=== PATIENT | male | born 1970 | race Caucasian/White ===

== ENCOUNTER 2018-04-20 20:53 | Emergency (ER) | payer OTHER, BC ==
[2018-04-20] MEDS: LORAZEPAM 2 MG INJ IV (21:16)
[2018-04-20] MEDS: SOD CHLORIDE 0.9% 1,000 ML IV (21:18)
[2018-04-20] MEDS: LEVETIRACETAM 1000 MG (PMX) 100 ML IVPB (21:20)
== END 2018-04-21 00:21 | disposition home or self-care (01) ==
LOC: E/R 04-21 00:21
DX: G40.909 Epilepsy, unspecified, not intractable, without status epilepticus (principal); R40.2252 Coma scale, best verbal response, oriented, at arrival to emergency department; F17.210 Nicotine dependence, cigarettes, uncomplicated; R40.2142 Coma scale, eyes open, spontaneous, at arrival to emergency department; R40.2362 Coma scale, best motor response, obeys commands, at arrival to emergency department
CPT/HCPCS: 82962; 96374; 96375; 99284-25

== ENCOUNTER 2018-04-21 13:53 | Emergency (ER) | payer OTHER ==
[2018-04-21 14:40] LABS: ADD MAN DIFF? NO
[2018-04-21 14:43] LABS: BASOPHIL # 0.1 10^3/ul (0.0-0.1); BASOPHILS % 1.1 % (0.0-2.0); EOSINOPHILS # 0.1 10^3/ul (0.0-0.5); EOSINOPHILS % 1.7 % (0.0-7.0); HEMATOCRIT 28.9 % (42.0-52.0); HEMOGLOBIN 9.6 g/dl (14.0-18.0); LYMPHOCYTES # 1.5 10^3/ul (0.8-2.9); LYMPHOCYTES % 23.5 % (15.0-51.0); MEAN CORPUSCULAR HEMOGLOBIN 32.8 pg (29.0-33.0); MEAN CORPUSCULAR HGB CONC 33.2 g/dl (32.0-37.0); MEAN CORPUSCULAR VOLUME 98.6 fl (82.0-101.0); MEAN PLATELET VOLUME 8.7 fl (7.4-10.4); MONOCYTE # 0.5 10^3/ul (0.3-0.9); MONOCYTES % 8.2 % (0.0-11.0); NEUTROPHIL # 4.1 10^3/ul (1.6-7.5); PLATELET COUNT 242 10^3/UL (140-415); RED BLOOD COUNT 2.93 10^6/ul (4.70-6.10); RED CELL DISTRIBUTION WIDTH 12.9 % (11.5-14.5)
[2018-04-21 14:43] LABS: WHITE BLOOD COUNT 6.3 10^3/ul (4.8-10.8)
[2018-04-21] MEDS: LORAZEPAM 2 MG INJ IV (14:56)
[2018-04-21] MEDS: SOD CHLORIDE 0.9% 1,000 ML IV (14:56)
[2018-04-21 15:04] LABS: ANION GAP 15 (8-16); BLOOD UREA NITROGEN 12 mg/dl (7-20); CALCIUM 8.2 mg/dl (8.4-10.2); CARBON DIOXIDE 25 mmol/L (21-31); CHLORIDE 109 mmol/L (97-110); CREATININE 0.53 mg/dl (0.61-1.24); GLUCOSE 97 mg/dl (70-220); POTASSIUM 3.5 mmol/L (3.5-5.1); SODIUM 145 mmol/L (135-144)
[2018-04-21] MEDS: LEVETIRACETAM 500 MG TAB PO (16:53)
[2018-04-21] MEDS: TOPIRAMATE 25 MG TAB PO (16:53)
== END 2018-04-22 01:20 | disposition home or self-care (01) ==
LOC: E/R 04-22 01:20
DX: G40.909 Epilepsy, unspecified, not intractable, without status epilepticus (principal); S00.83XA Contusion of other part of head, initial encounter; F10.920 Alcohol use, unspecified with intoxication, uncomplicated; L55.9 Sunburn, unspecified; F17.210 Nicotine dependence, cigarettes, uncomplicated; R40.2142 Coma scale, eyes open, spontaneous, at arrival to emergency department; R40.2242 Coma scale, best verbal response, confused conversation, at arrival to emergency department; R40.2362 Coma scale, best motor response, obeys commands, at arrival to emergency department; X58.XXXA Exposure to other specified factors, initial encounter; Y92.513 Shop (commercial) as the place of occurrence of the external cause; Z91.14 Patient's other noncompliance with medication regimen
CPT/HCPCS: 70450; 70486; 71045; 80048; 80307; 85025; 93005; 96374; 99285-25